=== PATIENT | male | born 2005 | race African-American/Black ===

== ENCOUNTER 2025-06-14 01:46 | Emergency (ER) | payer OTHER, SELFPAY ==
[2025-06-14 01:56] VITALS: BP 141/67; PULSE 76; RESP 18; TEMP 36.6; O2SAT 96; BMI 25.0
--- NOTE | 2025-06-14 02:01 | CRLHL7_ITS ---
For Patients: As a result of the Century Cures Act, medical imaging exams and procedure reports are released immediately into your electronic medical record. You may view this report before your referring provider. If you have questions, please contact your health care provider. Indication: Swelling, anterior knee pain. Technique: Right knee 3 views Comparison: None Findings: Bones: Minimally displaced inferior patellar fracture. Joint spaces: Small joint effusion. Soft tissues: Unremarkable. Impression: Minimally displaced inferior patellar fracture. Correlate for recent trauma. Dictated by Bijan Robledo MD @ 06/14/2025 2:24:47 AM (Electronically Signed)
[2025-06-14 02:24] VITALS: PULSE 76
[2025-06-14 02:59] VITALS: BP 113/88; PULSE 70; RESP 18
--- NOTE | 2025-06-14 02:59 | ED_ITS ---
HPI - General Adult General Chief complaint: Extremity Pain/Injury, Lower Stated complaint: right knee pain Time Seen by Provider: 06/14/25 02:00 Source: patient Mode of arrival: ambulatory Limitations: no limitations History of Present Illness HPI narrative: 19-year-old male presents to the emergency department in the wee hours for evaluation of right knee pain along the inferior patellar tendon and lateral joint line for the past 2 days. No trauma or injury. 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 No prior history of knee surgery. Notices swelling in the knee and feels like he has got a little tenderness in the calf now as well. He still able to bear weight, walk, move the ankle and hip without difficulty. No prior history of similar injury. He tried taking a single dose of aspirin tonight with no significant improvement in symptoms. No history of DVT or PE. No shortness of breath. No symptoms at opposite leg. Reports that his past medical history is benign, no major long-term health problems. Nonsmoker. No allergies. No prior knee surgeries. ROS is notable for the musculoskeletal symptoms as above only. Negative for other generalized, musculoskeletal, skin or hematological changes. PFSH PFS Social History Smoking Status: Never smoker Do you use any of these nicotine containing products: None Second hand tobacco smoke exposure: No How often do you have a drink containing alcohol: never How often do you have six or more drinks on one occasion: Never AUDIT-C Alcohol total score: 0 Non-prescribed substance use: denies use service: No Exam Const: Vital Signs, click to edit/add: Vital Signs - 24 hr 06/14/25 01:56 06/14/25 02:24 Temperature 97.9 F Pulse Rate [Dorsal is Pedis] 76 Pulse Rate [Pulse Oximeter] 76 Respiratory Rate 18 Blood Pressure [Ri ght Upper Arm] 141/67 H Pulse Oximetry 96 Oxygen Delivery Me thod Room Air Documenting provider has reviewed patient's vital signs: yes General appearance: cooperative and well kempt Other: Very polite. Appears well nourished and well hydrated. HENMT: Common normals: normocephalic Head and scalp: normocephalic Face and sinus: normal facial exam Eye: General eye: normal appearance of both eyes Resp: Common normals: normal respiratory effort Effort & inspection: able to speak in complete sentences Extremity: Other: Left leg appears grossly normal. No swelling to ankle, foot or knee. No swelling or tenderness to left calf. Attention turned to the right symptomatic side. There is very mild effusion noted to the right knee joint. There is 3/10 tenderness to the medial and lateral joint lines, 7/10 tenderness to palpation of the inferior patella, patellar tendon. 3/10 tenderness to the tibial tuberosity. There is no tenderness to palpation of the calves. He has very strong musculature Homans signs are strongly negative bilaterally. Ankle and feet without significant swelling, deformity or bruising. There are no open sores or wounds on the leg, no redness or warmth. He has normal range of motion of the knee with no ligamentous instability. Negative varus and valgus maneuvers. Good strong pedal pulses bilaterally. Psych: Common normals: thought process normal Appearance: well kempt Attitude: engaged Mood and affect: euthymic mood Thought process: normal thought process Insight: insight good Judgement: judgment good Skin: Common normals: no rashes or lesions noted General skin exam: no rashes or lesions noted Course Course ED Course: Knee effusion with inferior patellar pain, no obvious injury or trauma. High level athlete, x-ray recommended. Update: X-ray is performed and shows an inferior patellar fracture, uncertain etiology. He does not recall a dislocation or specific trauma. I do think this explains the fusion and the mild swelling that he has distally. I do not think there is any indication to do a venous Doppler ultrasound in the middle of the night as he is not experiencing any shortness of breath, his Homans is very negative, and we do have a good etiology for his symptoms. He would not have an effusion if this were caused by a DVT. Counseled patient that in the middle of the night, there is an to Sports Med person that I should be contacting for this mild injury. 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 I do provide him with the orthopedic number just in case. I also printed out a copy of his x-ray and provide him with a copy of the report as well. Counseled on Tylenol and ibuprofen. Absolutely no sports until cleared by the green jobs trainer or sports medicine physician. This includes lifting. He is able to walk and bear weight. He will not benefit from a brace. He may require advanced imaging to look for more extensive internal injuries which my x-ray would not diagnose. He verbalizes understanding and agreement to all of this. Written instructions provided. Vital Signs Vital signs: Initial Vital Signs Temperature 97.9 F 06/14/25 01:56 Temperature Source Temporal Artery Scan 06/14/25 01:56 Pulse Rate 76 06/14/25 01:56 Pulse Rhythm Regular 06/14/25 01:56 Respiratory Rate 18 06/14/25 01:56 Blood Pressure 141/67 H 06/14/25 01:56 Blood Pressure Mean 91 06/14/25 01:56 Blood Pressure Position Semi-Fowlers 06/14/25 01:56 Pulse Oximetry 96 06/14/25 01:56 Oxygen Delivery Method Room Air 06/14/25 01:56 Vital Signs Temperature 97.9 F 06/14/25 01:56 Pulse Rate 76 06/14/25 01:56 Respiratory Rate 18 06/14/25 01:56 Blood Pressure 141/67 H 06/14/25 01:56 Pulse Oximetry 96 06/14/25 01:56 Oxygen Delivery Method Room Air 06/14/25 01:56 Temperature 97.9 F 06/14/25 01:56 Pulse Rate 76 06/14/25 02:24 Respiratory Rate 18 06/14/25 01:56 Blood Pressure 141/67 H 06/14/25 01:56 Pulse Oximetry 96 06/14/25 01:56 Oxygen Delivery Method Room Air 06/14/25 01:56 Medical Decision Making Imaging Data Right knee x-ray: Attestation: I have reviewed the pertinent imaging results. My impression: Small chip fracture off the inferior surface of the patella with knee effusion noted. Radiologist's impression: Findings: Bones: Minimally displaced inferior patellar fracture. Joint spaces: Small joint effusion. Soft tissues: Unremarkable. Impression: Minimally displaced inferior patellar fracture. Correlate for recent trauma. Dictated by Bijan Robledo MD @ 06/14/2025 2:24:47 AM (Electronic Signature) Discharge Plan Discharge Clinical Impression: Patellar fracture Patient Disposition: Home w/ Parent or Adult Condition: Stable Instructions: Patellar Fracture (ED) Additional Instructions: As we discussed, you have a small chip fracture off the bottom part of your patella, also known as her kneecap. Usually these happen from some sort of trauma but can be from repetitive jumping or overuse. As an ER doctor, I do not have as much insight into this as a sports medicine physician or orthopedist would. You have let me know that you would like to coordinate your own specialty follow-up and that is fine. For reference, if you do need to see an process laboratory specialist, the number to schedule with our team is [phone]. Crutches are not typically helpful for this nor is a knee immobilizer since there does not seem to be any other sign of significant ligament or cartilage injury also. I advised no sports or lifting until you have followed up with the specialist, so please contact the green jobs trainer right away. For pain, I recommend Tylenol 1000 mg every 6 hours and or ibuprofen 600 mg every 6 hours. You should return to the emergency department if you have high fever, are completely unable to bear weight, notices significant increase in swelling or temperature and color changes in your feet. Stand Alone Forms: [facility]
== END 2025-06-14 03:02 | disposition home or self-care (01) ==
LOC: ED 02:53
PROVIDERS: Emergency Provider Family Medicine
DX: S82.001A Unspecified fracture of right patella, initial encounter for closed fracture (principal)
CPT/HCPCS: 73560; 99283